=== PATIENT | male | born 1995 | race Caucasian/White ===

== ENCOUNTER 2017-09-15 15:56 | Emergency (ER) | payer OTHER ==
[2017-09-15 16:10] VITALS: BP 118/71
--- NOTE | 2017-09-15 16:13 | EDPHY ---
H & P Stated Complaint: Intermittent dull ache midsternal area~1wk;no pain@present; denies drug use Time Seen by Provider: 09/15/17 16:13 - Personal History Current Tetanus Diphtheria and Acellular Pertussis (TDAP): Yes - Medical/Surgical History Other PMH: healthy - Social History Smoking Status: Never smoked Constitutional: Initial Vital Signs Temperature (C) 36.5 C 09/15/17 16:00 Heart Rate 65 09/15/17 16:00 Respiratory Rate 16 09/15/17 16:00 Blood Pressure 118/71 09/15/17 16:00 O2 Sat (%) 96 09/15/17 16:00 O2 Delivery Mode Room Air Allergies/Adverse Reactions: No Known Allergies Allergy (Unverified 09/15/17 16:10) Home Medications: Medication Instructions Recorded NK [No Known Home Meds] 09/15/17 Medical Decision Making ED Course/Re-evaluation: CHIEF COMPLAINT: Chest pain HISTORY OF PRESENT ILLNESS: This patient is a healthy 22 year-old male complaining of chest pain. His symptoms began about one week ago. He endorses a dull midsternal pain that lasts for about one second with associated difficulty catching his breath. It is always in the same area and does not radiate. He states it occurs more often with movement or exertion. Today, he has noticed the discomfort more frequently and he was busy at work and moving quickly and often. He has not noticed it while exercising. He denies any unusual activities that would cause chest wall injury. He does not take any medications regularly, and denies any personal or family history of cardiac or pulmonary problems. Two weeks ago, he went on a 30 hour car trip. He denies any pain or swelling in his calves. No fever. He denies any recent illness. No abdominal pain, nausea, extremity numbness or paresthesias, headache, or other associated symptoms. REVIEW OF SYSTEMS: A 10 point review of systems was performed and is negative with the exception of the elements mentioned in the history of present illness. PHYSICAL EXAM: HR, BP, O2 Sat, RR. Temp noted General Appearance: Alert, well hydrated, appropriate, and non-toxic appearing. Head: Atraumatic without scalp tenderness or obvious injury Eyes: Pupils equal, round, reactive to light and accommodation, EOMI, no trauma , no injection. Ears: Clear bilaterally, no perforation, normal landmarks Nose: Atraumatic, no rhinorrhea, clear. Throat: There is no erythema or exudates, no lesions, normal tonsils, mucus membranes moist. Neck: Supple, 2+ carotid upstroke, nontender, no lymphadenopathy. Respiratory: No retractions, no distress, no wheezes, and no accessory muscle use. Lungs are clear to auscultation bilaterally. Cardiovascular: Regular rate and rhythm with occasional PACs, no murmurs, rubs , or gallops. Bilateral carotid, radial, dorsalis pedis, and posterior tibial pulses intact. Good capillary refill all extremities. Gastrointestinal: Abdomen is soft, nontender, non-distended, no masses, no rebound, no guarding, no peritoneal signs. Musculoskeletal: Normal active ROM of all extremities, atraumatic. Neurological: Alert, appropriate, and interactive. The patient has normal DTRs and non-focal cranial nerves, motor, sensory, and cerebellar exam. Skin: No rashes, good turgor, no nodules on palpation. Past medical history: Denies. Past surgical history: Noncontributory Family history: Noncontributory Social history: Single. Lives in [place]. Employed. DIAGNOSTICS/PROCEDURES/CRITICAL CARE TIME: The 12 lead EKG was interpreted by myself. See hard copy and/or "tracemaster" electronic copy for interpretation. Sinus rhythm. DIFFERENTIAL DIAGNOSIS: The differential diagnosis for the patient's chest pain included but was not limited to myocardial ischemia, pulmonary embolus, chest wall pain, pleural inflammation, and pulmonary infectious causes. MEDICAL DECISION MAKIN22 y/o male presents with one week history of brief intermittent substernal chest pains. Plan for EKG, I-stat, POC troponin. Occasional PACs noted on exam. I applied Wells criteria, which is negative; low pre-test probability for DVT/ PE. I will not do further evaluation for DVT/PE at this time. EKG shows sinus rhythm. POC troponin negative. Reassessed patient. I do not suspect cardiac etiology at this time. Plan to discharge home in good condition. He will follow up with his primary care physician. Return precautions discussed. He is comfortable with this plan. - Data Points Laboratory Results: 09/15/17 16:26 POC Troponin I 0.00 ng/mL ng/mL (0.00-0.08) Point of Care Test Results: Chemistry 09/15/17 16:26 POC Troponin I 0.00 ng/mL ng/mL (0.00-0.08) Departure - Departure Disposition: Home, Routine, Self-Care Clinical Impression: Chest discomfort Condition: Good Instructions: Chest Pain (ED), Chest Wall Pain (ED) Additional Instructions: 1. Follow up with your primary care provider for further evaluation. 2. Return to the emergency department for fever, chest pain, shortness of breath , or other worsening of condition. Referrals: Simon Ayala MD [Medical Doctor] - As per Instructions Report Scribed for: Garry Timmons Report Scribed by: Li Laws Date of Report: 09/15/17 Time of Report: 16:18
--- NOTE | 2017-09-15 16:28 | CPEKG ---
Heart Rate: 54 RR Interval: 1111 P-R Interval: 164 QRSD Interval: 98 QT Interval: 424 QTC Interval: 402 P [place]: 23 QRS [place]: 66 T Wave [place]: 40 EKG Severity - ABNORMAL ECG - EKG Impression: SINUS RHYTHM EKG Impression: PROBABLE LEFT VENTRICULAR HYPERTROPHY EKG Impression: ST ELEV, PROBABLE NORMAL EARLY REPOL PATTERN Electronically Signed By: Garry Timmons 15-Sep-2017 18:32:34
== END 2017-09-15 16:55 | disposition home or self-care (01) ==
DX: R07.9 Chest pain, unspecified (principal)
CPT/HCPCS: 84484-PO

== ENCOUNTER → 2018-07-07 | Outpatient (CLI) | payer OTHER | LOC: FIMAGING 14:06 | PROVIDERS: ATTEND Orthopaedic Surgery Sports Medicine | DX: M79.661 Pain in right lower leg (principal); Z98.890 Other specified postprocedural states ==